=== PATIENT | male | born 1965 | race Caucasian/White ===

== ENCOUNTER 2020-03-23 06:11 | Day surgery (SDC) | payer BC, OTHER ==
[2020-03-21 11:36] VITALS: BMI 22.6
[2020-03-23 07:24] VITALS: TEMP 98.3
[2020-03-23 10:17] VITALS: BP 112/49; PULSE 55
== END 2020-03-23 10:40 | disposition home or self-care (01) ==
LOC: JASU-ENDO 06:11
PROVIDERS: ATTEND Internal Medicine Gastroenterology
PROC: 0DBL8ZX Excision of Transverse Colon, Via Natural or Artificial Opening Endoscopic, Diagnostic (ICD-10-PCS; 2020-03-23)
PROC: 0DBN8ZX Excision of Sigmoid Colon, Via Natural or Artificial Opening Endoscopic, Diagnostic (ICD-10-PCS; principal; 2020-03-23 08:00)
DX: Z12.11 Encounter for screening for malignant neoplasm of colon (principal); Z86.010 Personal history of colon polyps; D12.5 Benign neoplasm of sigmoid colon; D12.3 Benign neoplasm of transverse colon; K57.30 Diverticulosis of large intestine without perforation or abscess without bleeding
CPT/HCPCS: 88305-TC